=== PATIENT | male | born 1965 | race Caucasian/White ===

== ENCOUNTER 2019-08-01 20:48 | Emergency (ER) | payer BC, SELFPAY ==
[2019-08-01 20:57] VITALS: BP 181/102; PULSE 111; RESP 22; TEMP 37.1; O2SAT 98
--- NOTE | 2019-08-01 20:59 | DI.RAD.S_ITS ---
PROCEDURE: XR ACUTE ABDOMEN SERIES INDICATIONS: abd pain/nausea/constipation TECHNIQUE: One view chest and two views of the abdomen were acquired. COMPARISON: None. FINDINGS: Surgical changes and devices: None. Chest: Lungs are clear. Heart size is normal. No pleural effusions. No pneumoperitoneum. Abdomen: Bowel gas pattern is abnormal, with scattered small bowel air-fluid levels, in a pattern suggestive of ileus versus very early small bowel obstruction. Note is made of what appears to be ventral body wall mesh graft. No suspicious calcifications. Visualized solid organ contours appear normal. Bones: No suspicious bony lesions. IMPRESSION: No free air seen beneath the diaphragms. Small bowel ileus versus early small bowel obstruction pattern. Prior ventral body wall mesh graft. Dictated by: Vincent Butler M.D. on 08/01/2019 at 21:36 Approved by: Vincent Butler M.D. on 08/01/2019 at 21:37
[2019-08-01 22:49] VITALS: BP 172/96; PULSE 106; RESP 18; O2SAT 95
--- NOTE | 2019-08-01 22:56 | ED.ABDPAIN ---
HPI - Abdominal Pain General Chief Complaint: Abdominal Pain Stated Complaint: unable to pass stool, not eating Time Seen by Provider: 08/01/19 21:04 Source: patient Mode of arrival: Ambulatory Limitations: no limitations History of Present Illness HPI narrative: This is a 54-year-old male who comes emergency department with complaint of inability to pass stool. Patient states that he has not had a bowel movement in several days. He has felt warm but does not have any fevers he is aware of. He has felt nauseated he had 1 episode rate threw up a little bit but has not had active vomiting. He states he does have the urge to have a bowel movement but feels like his abdomen is distended and becoming more uncomfortable. He has not had any issues with urination, no frequency, dysuria urgency no loss of bowel or bladder control. He states that several days prior he injured his back and has been having some low back discomfort. He was given prescription for [place] and Flexeril which he has taken several doses total. He did try some MiraLax today. He also has a history of Crohn's and states he has never had a day where he has not had a bowel movement and frequently has loose stools. Patient states that he is on an immune modulator. He has had a bowel resection secondary to his Crohn, appendectomy, cholecystectomy as well as splenectomy in the past. States splenectomy was because it was enlarged. He also has a history kidney stones and has had lithotripsy in the past. States that he also has prehypertension but is not on medication. Has an allergy to Remicade. No tobacco, occasional alcohol and no illicit. His primary care is Dr. Quinones in [place]. He is accompanied by his . Related Data Home Medications Medication Instructions Recorded Confirmed aspirin 81 mg tablet,delayed 81 mg PO DAILY 02/21/19 02/21/19 release atorvastatin PO 02/21/19 02/21/19 vedolizumab 300 mg intravenous 300 mg IV Q8W 02/21/19 02/21/19 solution Previous Rx's Medication Instructions Recorded tamsulosin [Flomax] 0.4 mg PO DAILY #7 cap 08/02/19 Allergies Allergy/AdvReac Type Severity Reaction Status Date / Time infliximab [From REMICADE] Allergy Unknown Verified 02/21/19 11:09 Review of Systems Review of Systems ROS Unobtainable: All systems reviewed & are unremarkable except as noted in HPI and below Patient History Medical History (Updated 08/02/19 @ 01:58 by Shanika Kaminski DO) Crohn's disease (Acute) Surgical History (Updated 08/01/19 @ 23:10 by hSanika Kaminski DO) H/O splenectomy (Acute) History of bowel resection (Acute) Hx of appendectomy (Acute) Hx of cholecystectomy (Acute) Social History (Updated 08/01/19 @ 23:10 by Shanika Kaminski DO) marital status: Smoking Status: Never smoker Smoking Status: Never smoker alcohol intake frequency: a few times a month Substance Use Type: does not use Exam Narrative Exam Narrative: GENERAL: Alert and oriented x three, well-nourished male in mild distress. HEENT: Head normocephalic, atraumatic, EOMI, pupils reactive, face symmetric, moist mucous membranes NECK: Supple, full range of motion CARDIOVASCULAR: Regular rate and rhythm without murmurs, rubs or gallops. RESPIRATORY: Breath sounds equal bilaterally, no wheezes rales or rhonchi. ABDOMEN: Soft, mild generalized tenderness. Patient does appear distended but not tight. Hypoactive bowel sounds all 4 quadrants. No guarding or rebound, rigidity, no mass, no inguinal hernia. : No CVA tenderness EXTREMITIES: Normal range of motion, no clubbing or edema. Neurovascularly intact NEUROLOGICAL: Cranial nerves II through XII grossly intact. Moving all extremities SKIN: Warm, dry, no petechiae, no rashes or lesions. Initial Vital Signs Initial Vital Signs: Vital Signs Temperature 98.7 F 08/01/19 20:57 Pulse Rate 111 H 08/01/19 20:57 Respiratory Rate 22 08/01/19 20:57 Blood Pressure 181/102 H 08/01/19 20:57 Pulse Oximetry 98 08/01/19 20:57 Course Orders Ordered: ED Orders 08/01/19 20:59 XR acute abdomen series Stat 08/01/19 23:07 CT abdomen pelvis w con Stat 08/01/19 23:15 Complete Blood Count AUTO DIFF Stat Comprehensive Metabolic Panel Stat Lactate (Lactic Acid) Stat Lipase Stat Discontinued Medications Sodium Chloride (Normal Saline 0.9%) 1,000 mls @ 1,000 mls/hr IV BOLUS ONE Stop: 08/02/19 00:05 Last Infusion: 08/02/19 00:21 Dose: 1,000 mls/hr Documented by: Admin: 08/01/19 23:10 Dose: 1,000 mls/hr Documented by: DESTINI Ketorolac Tromethamine (Toradol) 15 mg IV NOW ONE Stop: 08/01/19 23:07 Last Admin: 08/01/19 23:16 Dose: 15 mg Documented by: DESTINI Ondansetron HCl (Zofran) 4 mg IV NOW ONE Stop: 08/01/19 23:07 Last Admin: 08/01/19 23:16 Dose: 4 mg Documented by: DESTINI Vital Signs Vital signs: Vital Signs - 8 hr 08/01/19 20:57 08/01/19 22:49 Temperature 98.7 F Pulse Rate 106 H Pulse Rate [Left] 111 H Respiratory Rate 22 18 Blood Pressure [Left Arm] 181/102 H 172/96 H Pulse Oximetry 98 95 MDM - Abdominal Pain Lab Data Attestation: I reviewed the patient's lab results. Result diagrams: 08/01/19 23:15 08/01/19 23:15 Labs: Lab Results 08/01/19 08/01/19 08/01/19 Range/Units 23:15 23:15 23:15 WBC 22.3 H (4.5-11.0) X10^3/uL RBC 5.04 (4.5-5.9) X10^6/uL Hgb 16.8 (13.5-17.5) g/dL Hct 47.6 (41-53) % MCV 94.4 (80-100) fL MCH 33.2 (26-34) PG MCHC 35.2 (30-36) % RDW 11.9 (11.6-14.8) % Plt Count 455 H (150-400) X10^3/uL Neut % (Auto) 70.9 (50-75) % Lymph % (Auto) 15.0 L (25-40) % [place] % (Auto) 13.2 (3-14) % Eos % (Auto) 0.3 L (2-4) % Baso % (Auto) 0.6 (0-2) % Neut # (Auto) 47208 H (7690-7242) /uL Lymph # (Auto) 3400 (4663-1378) /uL [place] # (Auto) 2900 H (0-900) /uL Eos # (Auto) 100 (0-450) /uL Baso # (Auto) 100 (0-100) /uL Sodium 138 (137-145) mmol/L Potassium 4.2 (3.4-5.1) mmol/L Chloride 99 (98-107) mmol/L Carbon Dioxide 29 (22-32) mmol/L BUN 17 (9-20) mg/dL Creatinine 1.30 H (0.66-1.25) mg/dL Estimated GFR 57.3 L (>60) mL/min BUN/Creatinine Ratio 13.1 (6-22) Glucose 122 H (70-100) mg/dL Lactate 1.0 (0.7-2.1) mmol/L Calcium 9.5 (8.4-10.2) mg/dL Total Bilirubin 1.1 (0.2-1.3) mg/dL AST 28 (17-59) IU/L ALT 27 (<50) IU/L Alkaline Phosphatase 79 (38-126) U/L Total Protein 8.3 H (6.3-8.2) g/dL Albumin 4.5 (3.5-5.0) g/dL Globulin 3.8 (1.7-4.1) g/dL Albumin/Globulin Ratio 1.2 (1.0-2.8) Lipase 76 (23-300) U/L Point of care testing: Urine Dip Bedside Urine Glucose Negative Bedside Urine Bilirubin - Negative Bedside Urine Ketone +/- 5 Urine Specific [place] 1.015 Bedside Urine Occult Blood - Negative Bedside Urine pH 6.0 Bedside Urine Protein - Negative Bedside Urine Urobilinogen - Negative Bedside Urine Nitrite - Negative Bedside Urine Leukocytes - Negative Esterase Imaging Data Abdominal x-ray: Radiologist's Impression: [address] [address] XRay Report Signed Patient: Shreyas Wild EMR#: [id number] : 1965Acct:[id number] Age/Sex: 54 / MDate of Service: 08/01/19 Loc: ED Accession Number: [id number] Procedure: XR acute abdomen series Ordering Provider: Shanika Kaminski D.O. PROCEDURE: XR ACUTE ABDOMEN SERIES INDICATIONS: abd pain/nausea/constipation TECHNIQUE: One view chest and two views of the abdomen were acquired. COMPARISON: None. FINDINGS: Surgical changes and devices: None. Chest: Lungs are clear. Heart size is normal. No pleural effusions. No pneumoperitoneum. Abdomen: Bowel gas pattern is abnormal, with scattered small bowel air-fluid levels, in a pattern suggestive of ileus versus very early small bowel obstruction. Note is made of what appears to be ventral body wall mesh graft. No suspicious calcifications. Visualized solid organ contours appear normal. Bones: No suspicious bony lesions. IMPRESSION: No free air seen beneath the diaphragms. Small bowel ileus versus early small bowel obstruction pattern. Prior ventral body wall mesh graft. Dictated by: Vincent Butler M.D. on 08/01/2019 at 21:36 Approved by: Vincent Butler M.D. on 08/01/2019 at 21:37 CT scan - abdomen/pelvis: Radiologist's Impression: Left moderate hydronephrosis and mild perinephric stranding compatible with obstructive uropathy secondary to 5.5 mm proximal ureteral calculus. Mild right hydro and minimal hydroureter with no obstructing calculus evident. Slight distention of urinary bladder without wall thickening. Cholecystectomy. 20.6 cm hepatomegaly with fatty infiltration. Couple punctate hypodensities limiter nonspecific maybe sister hemangiomas. Redundant colon. Mild thickening of right lower quadrant enteric colic structures and mesenteric stranding compatible with infectious/inflammatory process probably related to history of Crohn's. Fluid-filled colon with borderline distention of the cecum. Mild distension a few proximal small bowel loops. Bowel pattern nonspecific probably related to ileus mechanical obstruction less likely however if clinically suspected close radiographic follow-up is initially recommended. Epigastric ventral hernia containing small bowel loops without thickening or associated distention. 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 MDM Narrative Medical decision making narrative: Patient white count is 22, patient is afebrile ill tachycardic but also hypertensive. Creatinine is 1.3 glucose of 122 otherwise normal LFTs and renal function. Lactate is 1. Cultures were added on. Patient's initial x-ray imaging showed possible ileus versus small-bowel and clinically has some concern for bowel obstruction with multiple intra-abdominal surgeries in the past, Crohn's disease nausea and no bowel movement for several days although he has recently had on narcotics which may have slowed his GI transit. CT abdomen and pelvis was ordered. CT shows left uropathy with 5.5 proximal ureteral calculus. Mild right hydro with no obstructing calculus and right lower quadrant inflammatory infectious changes likely related to his Crohn's. Patient and I discussed he has a urologist that he follows with but is interested possibly in following with others and was given 2 local options. Was given a prescription for Flomax. He is comfortable taking Tylenol as needed for pain and has a prescription for [place] if needed. He has had some constipation although he had a bowel movement here in the emergency department and states that that felt much better. He does have an elevated white count he has changes in the lower quadrant bowel that are potentially from Crohn's although we discussed infectious causes are potential patient's pulse was elevated. He has been afebrile and he states he has had elevated white counts in the past. He states he is typically not put on prednisone when he was on his old medication he took an extra dose but he is not sure about his current immunotherapy. 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 Strict return precautions given. Discharge Plan Departure Patient Disposition: Home Clinical Impression: Kidney stone on left side Crohn's disease of both small and large intestine Qualifiers: Digestive disease complication type: without complication Qualified Code(s): K50.80 - Crohn's disease of both small and large intestine without complications Discharge Date/Time: 08/02/19 01:52 Instructions: DI for Crohn's Disease Flare Activity Restrictions/Additional Instructions: Call your caramel candy maker helper 1st thing this morning to discuss follow-up and medication changes for a Crohn's flare. Your imaging today shows on the left side that is 5.5 mm it is recommended that you follow-up with urology for this. It also shows mild thickening of the right lower and tear o'clock structures and mesenteric stranding suggesting edema compatible with inflammatory or infectious process likely related to your Crohn's disease. You may take [place] that you have been prescribed but make sure your taking a stool softener each time you take this medication. To avoid constipation I would recommend trying Tylenol up to a 1000 mg every 8 hours as needed for pain. A prescription for Flomax was sent to [facility] for your kidney stone. Return to the ER for fevers greater 100.4 F, new or worsening abdominal pain, persistent vomiting, black or bloody stools, inability urinate or other new or concerning symptoms. Prescriptions: New tamsulosin [Flomax] 0.4 mg capsule 0.4 mg PO DAILY Qty: 7 RF: 0 No Action atorvastatin PO RF: 0 Entyvio 300 mg recon soln 300 mg IV Q8W RF: 0 aspirin [Adult Aspirin Regimen] 81 mg tablet,delayed release (DR/EC) 81 mg PO DAILY RF: 0 Referrals: Suraj Lemus DO [Non-Staff] - Segundo Rogers MD [Physician] - Jose Quinones MD [Primary Care Provider] -
--- NOTE | 2019-08-01 23:07 | DI.CT.S_ITS ---
PROCEDURE: CT ABDOMEN PELVIS W CON INDICATIONS: nausea,no bowel movement in several days, distended, history of resection, crohns TECHNIQUE: After the administration of oral and intravenous contrast, 5 mm thick sections acquired from the diaphragms to the symphysis. 5 mm thick coronal and sagittal reformats were performed. For radiation dose reduction, the following was used: automated exposure control, adjustment of mA and/or kV according to patient size. COMPARISON: [facility], CR, XR ACUTE ABDOMEN SERIES, 08/01/2019, 20:57. [facility], CT, KIDNEY/ URETER/BLADDER, 01/25/2015, 19:44. FINDINGS: Image quality: Excellent. ABDOMEN: Lung bases: No pleural effusion. Minimal basilar atelectasis. Heart size is normal. Solid organs: Liver is normal in size. Question of hepatic steatosis. Gallbladder is absent. Biliary system is non-dilated. Pancreas enhances normally. Spleen is absent. No adrenal nodules. Kidneys are normal in size. There is decreased enhancement of the left kidney compared to the right. There is an obstructing calculus in the proximal one third of the left ureter measuring 8 x 6 mm, (2/52). There is moderate hydroureteronephrosis. There are several additional nonobstructing kidney stones bilaterally which are increased compared to 2015. Peritoneum and bowel: There is a mild thickening of the distal ileum and cecum. There is a mild amount of edema and stranding. There is liquid stool contents throughout the colon. Mild diverticulosis. Appendix is not identified. No small bowel obstruction. Nodes and vessels: No retroperitoneal or mesenteric adenopathy. Aorta and inferior vena cava are normal in caliber. The right renal artery is duplicated. Miscellaneous: Upper midline ventral abdominal wall hernia containing a nondilated loop of small bowel. This may be slightly worse compared to the 2015 CT. No fluid in the hernia sac. There is ventral abdominal wall hernia repair with mesh. PELVIS: Genitourinary: Bladder wall thickness is normal. Miscellaneous: No inguinal hernias or adenopathy. Bones: No suspicious bony lesions. A few tiny bone islands. No ankylosis of the SI joints. No vertebral body compression fractures. IMPRESSION: 1. Left proximal ureter obstructing calculus measuring 8 x 6 mm. Moderate left hydroureteronephrosis with associated decreased perfusion compared to the right kidney. 2. Inflammatory change of the distal ileum and cecum with mild surrounding edema. This may represent an acute exacerbation of Crohn's disease. 3. Distal liquid stool contents suggesting diarrhea. 4. Several additional nonobstructing kidney stones. 5. Upper midline ventral abdominal wall hernia containing loops of small bowel. No complication seen. This report is concordant with the overnight preliminary interpretation. Dictated by: Chadwick Lee M.D. on 08/02/2019 at 8:29 Approved by: Chadwick Lee M.D. on 08/02/2019 at 8:43
[2019-08-01] MEDS: SODIUM CHLORIDE 0.9% 1,000 ML 1000 ML IV (23:10)
[2019-08-01] MEDS: KETOROLAC 60 MG/2 ML VIAL 15 MG IV (23:16)
[2019-08-01] MEDS: ONDANSETRON 4 MG/2 ML INJ IV (23:16)
[2019-08-01 23:29] LABS: Add Manual Diff / Slide Review NO; Basophils Absolute Auto 100 /uL (0-100); Basophils Percent Auto 0.6 % (0-2); Eosinophils Absolute Auto 100 /uL (0-450); Eosinophils Percent Auto 0.3 % (2-4); Hematocrit 47.6 % (41-53); Hemoglobin 16.8 g/dL (13.5-17.5); Lymphocytes Absolute Auto 3400 /uL (1100-4500); Mean Corpuscular HGB Conc 35.2 % (30-36); Mean Corpuscular Hemoglobin 33.2 PG (26-34); Mean Corpuscular Volume 94.4 fL (80-100); Monocytes Absolute Auto 2900 /uL (0-900); Monocytes Percent Auto 13.2 % (3-14); Neutrophils Absolute Auto 15800 /uL (1500-7000); Neutrophils Percent Auto 70.9 % (50-75); Platelet Count 455 X10^3/uL (150-400); Red Blood Cell Count 5.04 X10^6/uL (4.5-5.9); Red Cell Distribution Width 11.9 % (11.6-14.8); White Blood Cell Count 22.3 X10^3/uL (4.5-11.0)
[2019-08-01 23:36] LABS: Alanine Aminotransferase 27 IU/L (<50); Albumin 4.5 g/dL (3.5-5.0); Albumin Globulin Ratio 1.2 (1.0-2.8); Alkaline Phosphatase 79 U/L (38-126); Aspartate Aminotransferase 28 IU/L (17-59); BUN Creatinine Ratio 13.1 (6-22); Bilirubin Total 1.1 mg/dL (0.2-1.3); Blood Urea Nitrogen 17 mg/dL (9-20); Calcium 9.5 mg/dL (8.4-10.2); Carbon Dioxide 29 mmol/L (22-32); Chloride 99 mmol/L (98-107); Estimated Glomerular Filt Rate 57.3 mL/min (>60); Globulin 3.8 g/dL (1.7-4.1); Glucose 122 mg/dL (70-100); HEMOLYSIS < 15 (0-50); Lipase 76 U/L (23-300); Potassium 4.2 mmol/L (3.4-5.1); Sodium 138 mmol/L (137-145); Total Protein 8.3 g/dL (6.3-8.2)
== END 2019-08-02 01:52 | disposition home or self-care (01) ==
PROVIDERS: Emergency Provider Emergency Medicine; PCP Family Medicine
DX: N20.0 Calculus of kidney (principal); K50.80 Crohn's disease of both small and large intestine without complications
CPT/HCPCS: 36415; 74022; 74177; 80053; 81003; 83605; 83690; 85025; 87040; 96361; 96374; 96375; 99284; J1885; J2405; Q9967

== ENCOUNTER → 2023-12-12 15:03 | Outpatient (CLI) | payer BC, SELFPAY | PROVIDERS: PCP Family Medicine; Visit Provider Physician Assistant Surgical | DX: R10.9 Unspecified abdominal pain (principal) | CPT/HCPCS: 87086 ==

== ENCOUNTER 2024-06-09 11:14 | Emergency (ER) | payer BC, SELFPAY ==
[2024-06-09 11:36] VITALS: BP 173/84; PULSE 76; RESP 16; TEMP 36.5; O2SAT 96; BMI 27.1
--- NOTE | 2024-06-09 12:42 | ED.GENADULT ---
HPI - General Adult General Chief complaint: Urogenital-Male Stated complaint: Lower back pain Time Seen by Provider: 06/09/24 12:42 Mode of arrival: Family Vehicle History of Present Illness HPI narrative: 59-year-old gentleman with a history of previous kidney stones, BPH, hyperlipidemia presents with severe left flank/low back pain. It has been increasing over the last 24 hour and significantly worse today. He is uncomfortable lying in bed moving his legs to find a more comfortable position, has a difficult time actually isolating the area of tenderness. He has not had gross hematuria, fevers, no bowel movement today but he is passing gas, pain has been significant enough it has not nausea. Related Data Home Medications Medication Instructions Recorded Confirmed aspirin 81 mg tablet,delayed 81 mg PO DAILY 02/21/19 02/21/19 release (Adult Aspirin Regimen) atorvastatin PO 02/21/19 02/21/19 vedolizumab 300 mg intravenous 300 mg IV Q8W 02/21/19 02/21/19 solution (Entyvio) Previous Rx's Medication Instructions Recorded tamsulosin 0.4 mg capsule (Flomax) 0.4 mg PO DAILY #7 caps 08/02/19 diazepam 5 mg tablet 5 mg PO TID PRN muscle spasm #10 06/09/24 tabs Allergies Allergy/AdvReac Type Severity Reaction Status Date / Time infliximab [From REMICADE] Allergy Unknown Verified 12/12/23 15:39 latex Allergy Verified 06/09/24 11:41 Review of Systems Review of Systems Narrative: Pertinent positive and negative findings as per HPI Patient History Medical History (Updated 06/09/24 @ 15:53 by Effie Herrera MD) Crohn's disease Surgical History (Updated 08/01/19 @ 23:10 by Shanika Kaminski DO) Hx of appendectomy Hx of cholecystectomy H/O splenectomy History of bowel resection Social History (Updated 08/01/19 @ 23:10 by Shanika Kaminski DO) marital status: Smoking Status: Never smoker Smoking Status: Never smoker alcohol intake frequency: a few times a month Exam Initial Vital Signs Initial Vital Signs: Vital Signs Temperature 97.7 F 06/09/24 11:36 Pulse Rate 76 06/09/24 11:36 Respiratory Rate 16 06/09/24 11:36 Blood Pressure 173/84 H 06/09/24 11:36 Pulse Oximetry 96 06/09/24 11:36 Oxygen Delivery Method Room Air 06/09/24 11:36 General: Healthy appearing, acutely uncomfortable, able to participate fully with exam HEENT: Moist mucous membranes, normal sclera with reactive pupils, Respiratory: Lungs are clear to auscultation, no wheezing no rales no rhonchi. Full and symmetrical air movement Cardiac: Regular rate and rhythm no murmurs no bruits Abdomen: Soft, nontender, no specific flank pain no specific left lower quadrant pain. No skin changes. He does not have significant paraspinous muscle spasm and does not have point tenderness over his lumbar spine. Skin: Warm and dry, no rashes Neurologic: Grossly neurologically intact with no obvious asymmetries or abnormalities. Has no distal paresthesias, does not have significant pain with straight leg raising and finds that moving his legs alternating trend fully flexed and extended is more helpful for pain control. Extremities: No trauma, well perfused Psych: Cooperative, appropriate insight and affect Course Orders Ordered: ED Orders 06/09/24 12:52 US renal complete Stat 06/09/24 13:40 Complete Blood Count AUTO DIFF Stat Comprehensive Metabolic Panel Stat Hydromorphone HCl (Hydromorphone 0.5 Mg Inj) 0.5 mg IV Q15MIN PRN PRN Reason: Pain, Last Admin: 06/09/24 13:38 Dose: 0.5 mg Documented By: [facility] Discontinued Medications Ketorolac Tromethamine (Ketorolac 30 Mg/Ml Vial) 15 mg IV NOW ONE Stop: 06/09/24 12:53 Last Admin: 06/09/24 13:37 Dose: 15 mg Documented By: [facility] Vital Signs Vital signs: Vital Signs - 8 hr 06/09/24 11:36 06/09/24 14:58 Temperature 97.7 F Pulse Rate 76 60 Respiratory Rate 16 16 Blood Pressure 173/84 H 139/85 Pulse Oximetry 96 98 Oxygen Delivery Method Room Air Room Air Medical Decision Making Lab Data 06/09/24 13:40 06/09/24 13:40 Labs: Lab Results 06/09/24 Range/Units 13:40 WBC 14.2 H (4.5-11.0) X10^3/uL RBC 5.23 (4.5-5.9) X10^6/uL Hgb 17.2 (13.5-17.5) g/dL Hct 49.3 (41-53) % MCV 94.3 (80-100) fL MCH 32.9 (26-34) PG MCHC 34.9 (30-36) % RDW 12.2 (11.6-14.8) % Plt Count 483 H (150-400) X10^3/uL Neut % (Auto) 54.2 (50-75) % Lymph % (Auto) 34.0 (25-40) % [place] % (Auto) 9.0 (3-14) % Eos % (Auto) 1.4 L (2-4) % Baso % (Auto) 1.4 (0-2) % Neut # (Auto) 7700 H (1559-4915) /uL Lymph # (Auto) 4800 H (4263-8052) /uL [place] # (Auto) 1300 H (0-900) /uL Eos # (Auto) 200 (0-450) /uL Baso # (Auto) 200 H (0-100) /uL Sodium 139 (137-145) mmol/L Potassium 4.4 (3.4-5.1) mmol/L Chloride 108 H (98-107) mmol/L Carbon Dioxide 22 (22-32) mmol/L BUN 15 (9-20) mg/dL Creatinine 0.75 (0.66-1.25) mg/dL Estimated GFR > 60 (>60) mL/min BUN/Creatinine Ratio 20.0 (6-22) Glucose 94 (80-110) mg/dL Calcium 9.2 (8.4-10.2) mg/dL Total Bilirubin 0.7 (0.2-1.3) mg/dL AST 39 (17-59) IU/L ALT 41 (<50) IU/L Alkaline Phosphatase 66 (38-126) U/L Total Protein 7.5 (6.3-8.2) g/dL Albumin 4.5 (3.5-5.0) g/dL Globulin 3.0 (1.7-4.1) g/dL Albumin/Globulin Ratio 1.5 (1.0-2.8) Urine Dip Bedside Urine Glucose Negative Bedside Urine Bilirubin - Negative Bedside Urine Ketone - Negative Urine Specific [place] 1.015 Bedside Urine Occult Blood - Negative Bedside Urine pH 5.5 Bedside Urine Protein - Negative Bedside Urine Urobilinogen - Negative Bedside Urine Nitrite - Negative Bedside Urine Leukocytes - Negative Esterase Point of care testing: Urine Dip Bedside Urine Glucose Negative Bedside Urine Bilirubin - Negative Bedside Urine Ketone - Negative Urine Specific [place] 1.015 Bedside Urine Occult Blood - Negative Bedside Urine pH 5.5 Bedside Urine Protein - Negative Bedside Urine Urobilinogen - Negative Bedside Urine Nitrite - Negative Bedside Urine Leukocytes - Negative Esterase MDM Narrative Medical decision making narrative: CC: Left back/flank pain Complicating co-morbidities: Prior history of kidney stones Data collected from: patient Differential considered: Kidney stone, pyelonephritis, musculoskeletal back pain based on his exam I doubt diverticulitis or intra-abdominal abscess. Epidural abscess or infection is felt to be less likely Exam documented above, pertinent findings include: Moving freely about complaining of left flank and back pain without localizing findings on exam Lab Test results independently reviewed as above. Pertinent findings: CBC shows mild leukocytosis at 14.2 without left shift likely demargination from the pain he has been experiencing Chemistries are reassuring with normal renal function normal liver function Urine does not have red blood cells no suggestion of UTI Imaging studies independently reviewed: With shared decision-making in light of the number of CT scans over the course of his lifetime, we chose to begin imaging studies with ultrasound. Preliminary ultrasound result shows small stones in both kidneys without obstruction, bilateral ureteral jets are appreciated in the bladder. Treatments: Toradol, diazepam Discussion: 59-year-old gentleman with left low back spasm, at this point there was no evidence of infection, diverticulitis, kidney stone, ureteral obstruction or acute surgical abdomen. Patient isn't particularly interested in narcotics is interested in trying muscle relaxant we discussed the use of diazepam. At this point there was no indication for additional imaging blood work or hospitalization he is safe for discharge. Discharge Plan Departure Patient Disposition: Home Clinical Impression: Spasm of muscle of lower back Instructions: DI for Low Back Pain Activity Restrictions/Additional Instructions: Thank you for coming in today With your exam there was no evidence of kidney stones that are blocking, infection inside your abdomen or involving your kidneys. I suspect that your pain is mostly muscle spasm. The fact that you are moving standing and twisting as easily as you are suggests more spasm rather than acute injury to the discs or bones of your lumbar spine. Frequently after you do pull your back pain is worse 48 hours later. Tomorrow you may have more pain. Ice and heat can be helpful. Early mobilization with gentle stretching and walking is helpful. Using 400 mg of ibuprofen (2 [id number] pills) and 1 Tylenol every 6 hours can be very helpful in controlling pain. To this combination you can add 5 mg of diazepam. Diazepam is a muscle relaxant and can help with the spasm. If you find that you are getting worse or develop any new symptoms, please feel free to return to the emergency department for further evaluation. Prescriptions: New diazepam 5 mg tablet 5 mg PO TID PRN (Reason: muscle spasm) Qty: 10 0RF No Action atorvastatin PO Entyvio 300 mg recon soln 300 mg IV Q8W aspirin [Adult Aspirin Regimen] 81 mg tablet,delayed release (DR/EC) 81 mg PO DAILY tamsulosin [Flomax] 0.4 mg capsule 0.4 mg PO DAILY Qty: 7 0RF Referrals: Jose Quinones MD [Primary Care Provider] - Stand Alone Forms: Patient Portal/API/Survey
--- NOTE | 2024-06-09 12:52 | DI.US.S_ITS ---
PROCEDURE: US RENAL COMPLETE INDICATIONS: LEFT FLANK PAIN TECHNIQUE: Real-time scanning was performed of the kidneys and bladder, with image documentation. COMPARISON: [facility], CT, CT ABDOMEN PELVIS W CON, 08/01/2019, 23:09. FINDINGS: Kidneys: Kidneys are normal in size. Right kidney measures 12.7 cm long; left kidney measures 12.5 cm long. Right renal cortical thickness is 1.7 cm; left renal cortical thickness is 1.6 cm. Renal cortical echotexture is normal. 1 nonobstructing stones are seen in bilateral kidneys measures up to 1.4 cm in size in lower pole right kidney and up to 1.2 x 0.9 cm in size in lower pole left kidney. No suspicious solid mass lesions. Bladder: Pre-void bladder volume is 159 mL. Post-void residual is 59 mL. Pre-void images demonstrate no intraluminal masses or stones. On pre-void images, bilateral ureteral jets are noted with color Doppler interrogation. (Of note, ureteral jets may not be detectable in up to 25% of cases due to insufficient differences in specific gravity between ureteral and bladder urine). Miscellaneous: No free pelvic fluid. IMPRESSION: 1. Bilateral nonobstructing renal calculi. No hydronephrosis or hydroureter. No solid appearing renal lesion. 2. Normal appearing urinary bladder with moderate amount of postvoid residual. Dictated by: Charlie Calderon M.D. on 06/09/2024 at 14:15 Approved by: Charlie Calderon M.D. on 06/09/2024 at 14:17
[2024-06-09] MEDS: KETOROLAC 30 MG/ML VIAL 15 MG IV (13:37)
[2024-06-09] MEDS: HYDROMORPHONE 0.5 MG INJ IV (13:38)
[2024-06-09 13:47] LABS: Add Manual Diff / Slide Review NO; Basophils Absolute Auto 200 /uL (0-100); Basophils Percent Auto 1.4 % (0-2); Eosinophils Absolute Auto 200 /uL (0-450); Eosinophils Percent Auto 1.4 % (2-4); Hematocrit 49.3 % (41-53); Hemoglobin 17.2 g/dL (13.5-17.5); Lymphocytes Absolute Auto 4800 /uL (1100-4500); Mean Corpuscular HGB Conc 34.9 % (30-36); Mean Corpuscular Hemoglobin 32.9 PG (26-34); Mean Corpuscular Volume 94.3 fL (80-100); Monocytes Absolute Auto 1300 /uL (0-900); Neutrophils Absolute Auto 7700 /uL (1500-7000); Neutrophils Percent Auto 54.2 % (50-75); Platelet Count 483 X10^3/uL (150-400); Red Blood Cell Count 5.23 X10^6/uL (4.5-5.9); Red Cell Distribution Width 12.2 % (11.6-14.8); White Blood Cell Count 14.2 X10^3/uL (4.5-11.0)
[2024-06-09 13:59] LABS: Alanine Aminotransferase 41 IU/L (<50); Albumin 4.5 g/dL (3.5-5.0); Albumin Globulin Ratio 1.5 (1.0-2.8); Alkaline Phosphatase 66 U/L (38-126); Aspartate Aminotransferase 39 IU/L (17-59); Bilirubin Total 0.7 mg/dL (0.2-1.3); Blood Urea Nitrogen 15 mg/dL (9-20); Calcium 9.2 mg/dL (8.4-10.2); Carbon Dioxide 22 mmol/L (22-32); Chloride 108 mmol/L (98-107); Estimated Glomerular Filt Rate > 60 mL/min (>60); Glucose 94 mg/dL (80-110); HEMOLYSIS < 15 (0-50); Potassium 4.4 mmol/L (3.4-5.1); Sodium 139 mmol/L (137-145); Total Protein 7.5 g/dL (6.3-8.2)
[2024-06-09 14:58] VITALS: BP 139/85; PULSE 60; RESP 16; O2SAT 98
[2024-06-09 16:04] VITALS: BP 150/85; PULSE 65; RESP 18; O2SAT 98
== END 2024-06-09 16:25 | disposition home or self-care (01) ==
PROVIDERS: Emergency Provider Emergency Medicine; PCP Family Medicine
DX: M62.830 Muscle spasm of back (principal)
CPT/HCPCS: 36415; 76770; 80053; 81003; 85025; 96374; 96375; 99284; J1171; J1885